=== PATIENT | male | born 1995 | race African-American/Black ===

== ENCOUNTER 2019-01-14 21:03 | Emergency (ER) | payer OTHER ==
[2019-01-14 21:41] LABS: Bilirubin Small (Negative); Blood, Urine Large (Negative); Clarity Cloudy (Clear); Glucose, Urine (Dipstick) Negative (Negative); Leukocyte Negative (Negative); Nitrite Negative (Negative); Protein, Urine (Dipstick) Trace mg/dL (Neg-Trace); Urobilinogen 0.2 mg/dL (Less than 2)
[2019-01-14 21:47] LABS: Bacteria/HPF None Seen HPF (None Seen); RBC/HPF Greater than 50 HPF (0-3); Squamous Epithelial 0-3 HPF (0-3)
[2019-01-14 21:49] LABS: Anion Gap 15 mmol/L (10-20); BUN (Urea Nitrogen) 14 mg/dL (8.9-20.6); Calc. Creatinine Clearance 0 mL/min (70-130); Calcium 9.5 mg/dL (7.8-10.44); Carbon Dioxide 29 mmol/L (22-29); Chloride 103 mmol/L (98-107); Estimated GFR-MDRD Greater than 90; Glucose 98 mg/dL (70-105); Potassium 4.8 mmol/L (3.5-5.1); Sodium 142 mmol/L (136-145)
== END 2019-01-14 22:01 | disposition home or self-care (01) ==
LOC: SCSER 21:03
DX: R31.0 Gross hematuria (principal)
CPT/HCPCS: 80048; 81003; 81015; 99283

== ENCOUNTER 2022-01-19 23:53 | Emergency (ER) | payer OTHER, SELFPAY ==
[2022-01-20] MEDS ORDERED: Lidocaine 1% PF 5 ML VIAL ONE (00:08)
== END 2022-01-20 00:59 | disposition home or self-care (01) ==
LOC: ERS 23:53
DX: S46.221A Laceration of muscle, fascia and tendon of other parts of biceps, right arm, initial encounter (principal); W26.0XXA Contact with knife, initial encounter
CPT/HCPCS: 12001